=== PATIENT | female | born 1995 | race Caucasian/White ===

== ENCOUNTER 2017-12-15 02:36 | Observation (INO) | payer SELFPAY ==
[2017-12-15] VITALS (11 sets, daily range): BP systolic 134–146; BP diastolic 70–97; PULSE 93–116; TEMP 97.8–99
[~2017-12-15] VITALS: Ht 170.2 cm; Wt 71.8 kg
[2017-12-15] MEDS ORDERED: BIRTH CONTROL PO (02:52)
[2017-12-15 04:15] LABS: BASO % 0.2 % (0.0-2.0); EOS % 0.1 % (0-4.0); GRAN % 86.1 % (42.2-75.2); HEMATOCRIT 38.4 % (37.0-47.0); HEMOGLOBIN 13.7 g/dl (12.5-16.0); LYMPH # 1.4 (1.2-3.4); LYMPH % 7.4 % (20.0-51.0); MEAN CELL VOLUME 86 fl (80.0-100.0); MEAN CORPUSCULAR HEMOGLOBIN 31 pg (27.0-31.0); MEAN CORPUSCULAR HGB CONC 36 g/dl (33.0-37.0); MEAN PLATELET VOLUME 9.2 fl (7.4-10.4); MONO # 1.1 (0.1-0.6); MONO % 5.7 % (1.7-9.3); PLATELET COUNT 322 K/mm3 (130-400); RED BLOOD COUNT 4.49 M/mm3 (4.10-5.30); REDCELL DISTRIBUTION WIDTH-CV 11.9 % (11.5-14.5)
[2017-12-15 04:28] LABS: ALANINE AMINOTRANSFERASE 30 U/L (9-52); ALCOHOL(ethanol),MEDICAL < 10 mg/dL; ALKALINE PHOSPHATASE 64 U/L (50-136); ANION GAP 15 mmol/L (7-16); AST,SGOT 27 U/L (15-37); BILIRUBIN,TOTAL 0.4 mg/dL (0.0-1.0); BLOOD UREA NITROGEN 10 mg/dL (7-17); CALCIUM 9.3 mg/dL (8.4-10.2); CARBON DIOXIDE 23 mmol/L (22-30); CHLORIDE 101 mmol/L (98-107); CREATININE, serum 0.65 mg/dL (0.52-1.25); GLUCOSE 113 mg/dL (74-106); POTASSIUM 3.7 mmol/L (3.4-5.0); SODIUM 139 mmol/L (137-145); TOTAL PROTEIN 7.1 gm/dL (6.4-8.2)
[2017-12-16] MEDS ORDERED: NORCO 325 MG-7.1 TAB PO (07:35)
[2017-12-16 07:49] VITALS: BP 126/70; PULSE 93; TEMP 99.7
== END 2017-12-16 09:32 | disposition home or self-care (01) ==
LOC: COL.ER 02:36 → SURG 04:11
PROVIDERS: Emergency Medicine
DX: S51.021A Laceration with foreign body of right elbow, initial encounter (principal); S46.321A Laceration of muscle, fascia and tendon of triceps, right arm, initial encounter; S81.011A Laceration without foreign body, right knee, initial encounter; V89.2XXA Person injured in unspecified motor-vehicle accident, traffic, initial encounter; S81.812A Laceration without foreign body, left lower leg, initial encounter
CPT/HCPCS: G0378; J0690; J1100; J1580; J1885; J2270; J2405; J2704; J3010; J7030; J7120; Q4050